=== PATIENT | female | born 1985 | race Caucasian/White ===

== ENCOUNTER 2016-12-04 13:49 | Emergency (ER) | payer OTHER, BC ==
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
[2016-12-04 14:41] LABS: CHLORIDE,CL 104 mmol/L (101-111); SODIUM,NA 138 mmol/L (135-145)
== END 2016-12-04 15:50 | disposition home or self-care (01) ==
LOC: DL.ED 13:49
DX: S06.0X0A Concussion without loss of consciousness, initial encounter (principal); Z88.8 Allergy status to other drugs, medicaments and biological substances; V43.52XA Car driver injured in collision with other type car in traffic accident, initial encounter
CPT/HCPCS: 36415; 80053; 80305; 81001; 81025; 85025; 99284; G0480